=== PATIENT | female | born 1985 | race Caucasian/White ===

== ENCOUNTER → 2017-05-30 | Outpatient (CLI) | payer BC ==
[~2017-05-30] VITALS: Ht 152.4 cm; Wt 115.5 kg
[2017-05-30 16:19] VITALS: BP 135/54; PULSE 82; Ht 152.4 cm; Wt 115.5 kg
== END | disposition home or self-care (01) ==
LOC: C.NEUR 14:09
PROVIDERS: ATTEND Internal Medicine Pulmonary Disease
DX: G47.33 Obstructive sleep apnea (adult) (pediatric) (principal); F45.8 Other somatoform disorders

== ENCOUNTER → 2017-06-20 | Outpatient (CLI) | payer BC ==
--- NOTE | 2017-06-21 05:33 | PAP/PSG TECHNICIAN REPORT ---
[facility] [address] Multimedia Assistant Polysomnogram Report Study name: None Report date: 06/21/2017 Study date: 06/20/2017 Referring Physician: Dr. Maldonado Name: DEVAN BIGGS Interpreting Physician: Burton Maldonado D.O. Date of : 1985 Multimedia Assistant: Keanu Faria RPSGT. Sex: Female Age: 32 StudyType: PSG Weight: 255 lbs Height: 32 years, Height 5' 0" BMI: 49.8 Medications: SPIRONOLACTONE 50 MG, SERTRALINE HCL 50 MG, SYNTHROID 150 MCG Patient History PATIENT HAS HISTORY OF FATIGUE, SNORING, HYPOTHYROIDISM AND WITNESSED APNEAS. SHE IS HERE TODAY FOR AN EVALUATION FOR RYAN. ESS = 5 RM 5 Parameters Monitored NPSG: E1-M2, E2-M1, Fp1-M2, Fp2-M1, F3-M2, F4-M2, F4-M1, C3-M2, C4-M2, C4-M1, O1-M2, O2-M2, O2-M1, T3-M2, T4-M1, P3-M2, P4-M1, CHIN1, CHIN2, HR, EKG, Legs, PFLOW, SNOR, FLOW, CFLOW, Tidal Volume, THOR, ABDO, SpO2, PLTH, CPRESS, ETCO2 Wave, ETCO2, pH Sleep Architecture Sleep Stages Time at Lights Off 10:44:08 PM STAGES Time (min.) TST (%) Time at Lights On 5:24:08 AM Wake 56.5 -- Total Recording Time (TRT) 400.00 min. N1 18.5 5 Total Sleep Period (TSP) 370.0 min. N2 177.5 52 Total Sleep Time (TST) 343.5min. N3 94.0 27 Awake Time 56.5 min. REM 53.5 16 Wake after Sleep Onset 26.5 min. Sleep Efficiency (SE) 86 % Sleep Onset Latency (VIOLETTE) 30.0 min. Number of Stage 1 Shifts None Awakenings 14 Stage Changes 45 Number of REM periods 2 REM 53.5 16 REM Latency 254.0 min. NREM 290.0 84 Body Position Analysis Supine Right Left Side Prone Vertical Total Sleep Time (min.) 180.3 0.0 69.2 69.22 121.7 0.0 Total Sleep Time (%) 48% 0% 20% 20 32% N/A% Total Sleep Time REM (min.) 53.5 0.0 0.0 None 0.0 0.0 Total Sleep Time NREM (min.) 111.8 0.0 69.2 None 109.0 0.0 Intermittent Wake (min.) 15.0 5.9 22.9 None 12.7 0.0 Total Sleep Period (%) 48% None None None None None Arousals Myoclonus (PLM) * Events Count Index Events Count Index Spontaneous 19 3 Events Awake (PLMW) 35 37.2 Respiratory 1 0.2 Events Asleep w/ Arousal (PLMA) 4 0.7 PLM 4 1 Events Asleep w/o Arousal (PLMS) 136 23.8 Snoring 4 1 Total Asleep 140 24.5 Total 28 5 Total 175 26 Respiratory Analysis * CA OA MA CH H RERA Total Count 0 0 0 0 49 0 49 Index 0.0 0.0 0.0 0 8.6 0 8.6 Mean Duration 0.0 0.0 0.0 0.00 19.7 0.0 19.7 Longest Duration 0.0 0.0 0.0 0.00 0.0 0.0 59.0 Respiratory Event Summary Total Supine ~Supine Right Left Prone REM NREM Apneas Count 0 0 0 N/A 0 0 0 0 Index 0.0 0 0 N/A 0.0 0 0 0 Hypopneas (4% Desat) Count 49 44 5 N/A 0 5 41 8 Index 8.6 16.0 2 N/A 0.0 2.8 46.0 1.7 Apneas & All Hypopneas Count 49 44 5 N/A 0 5 41 8 Index 8.6 16 2 N/A 0 3 46.0 1.7 Respiratory Events (Development Mgr+All Hyp+RERA) Count 49 44 5 N/A 0 5 41 8 Index 8.6 16 2 N/A 0.0 2.8 46.0 1.7 Respiratory Related Arousal Count 1 44 0 N/A 0 0 0 1 Index 0.2 0 0 N/A 0 0 0 0 Snoring Analysis Supine Right Left Prone REM NREM Total Snore duration 27.8 min Snores count 128 N/A 816 396 43 1,297 1,340 Snore mean duration 1.2 Sec Snores index 46 N/A 707 218 48.2 268.3 234.1 TST with snoring (%) 8.1% Desaturation Event Summary: Minimum %SpO2 Event Count Mean/Min/Max Duration(sec.) Desaturation Index % Time In Bed > 90 48 29.1 / 4.3 / 59.3 7.7 94.4 86 - 90 18 12.0 / 5.3 / 29.0 55.9 4.9 81 - 85 1 8.8 / 8.8 / 8.8 23.5 0.6 76 - 80 0 N/A 0.0 0.0 71 - 75 0 N/A 0.0 0.0 66 - 70 0 N/A 0.0 0.0 61 - 65 0 N/A 0.0 0.0 56 - 60 0 N/A 0.0 0.0 51 - 55 0 N/A 0.0 0.0 < 50 0 N/A 0.0 0.0 Total REM NREM Awake <50% 0.0 min. 0.0 min. 0.0 min. 0.0 min. 51 - 60% 0.0 min. 0.0 min. 0.0 min. 0.0 min. 61 - 70% 0.0 min. 0.0 min. 0.0 min. 0.0 min. 71 - 80% 0.2 min. 0.2 min. 0.0 min. 0.0 min. 81 - 90% 21.9 min. 20.7 min. 0.6 min. 0.6 min. 91 - 100% 372.0 min. 32.7 min. 289.4 min. 49.9 min. Average 93 91 93 94 Minimum SpO2 79 79 87 90 Desaturation Event Index 8.9 50.5 1.9 5.3 # Desat. Events below 89% 41 40 1 N/A Time(%) with Saturation below 89% 2.7 2.7 0.0 0.0 Time(min.) with Saturation below 89% 10.8 10.7 0.1 0.0 Time (mins) REM (mins) NREM (mins) % of TST SpO2 Below 90% 46 45 N1 4.7 SpO2 Below 88% 16 0 0 2 Heart Rate Analysis Min (bpm) Max (bpm) Average (bpm) Awake 58 127 71 NREM 57 108 71 REM 55 97 77 Overall 55 108 72 Supplemental O2 Values Minimum O2 level: None Value Start Time End Time Multimedia Assistant Comments Mrs. Biggs slept in the left, supine and prone positions. No cardiac arrhythmia noted. Leg movements noted. No bruxism noted. Snoring was noted and scored as a 4 on a scale of 1 through 5. (0=no snoring, 5=snoring loud enough to be heard through a closed door or down the good way) Mrs. Biggs awoke to use the restroom 0 times during the night. Mrs. Biggs stated I slept as well as I do when I am in my own bed. The final report will be interpreted and signed by a sleep physician. The completed physician report will then be placed in the patient medical record. Therapy (cm H2O) 0 TIB (min.) 400.0 TST (min.) 343.5 Sleep Onset (min.) 30.0 REM Onset From Sleep (min.) 254.0 Sleep Efficiency % 86 Wakefulness (%) 14 Wakefulness (min.) 56.5 NREM 1 (%) 5 NREM 1 (min.) 18.5 NREM 2 (%) 52 NREM 2 (min.) 177.5 NREM 3 (%) 27 NREM 3 (min.) 94.0 REM (%) 16 REM (min.) 53.5 # Arousals 28 Arousal Index 5 # Snore 1,340 Snore Index 234.1 AHI 8.6 AHI Supine 16 AHI Non-Supine 2 NREM AHI 1.7 REM AHI 46.0 RDI 8.6 # Obstructive Apnea 0 # Central Apnea 0 # Mixed Apnea 0 # Hypopneas 49 RERAs 0 Total Respiratory Events 49 Time Below SpO2 89% (min.) 10.8 Mean NREM SpO2 (%) 93 Mean REM SpO2 (%) 91 Mean Sleep SpO2 (%) 93 Min NREM SpO2 (%) 87 Min REM SpO2 (%) 79 Position Supine (min.) 180.3 Position Non-supine (min.) 178.2 LM Index Sleep 24.5 LM Index NREM 26.1 LM Index REM 15.7 Mean Heart Rate (bpm) 72 Min Heart Rate (bpm) 55
--- NOTE | 2017-06-25 17:40 | Sleep Study ---
Sleep Study Report Date of Service: 06/20/2017 Sleep Study Report Clinical data: The patient is a 32-year-old female with a history of snoring, observed apneas, and fatigue. Her [place] score is 5. She has a history of polycystic ovarian disease. Her BMI is severely elevated at 49.8. Sleep architecture: The total sleep period was 370 minutes. The total sleep time was 343.5 minutes. The sleep efficiency was mildly reduced to 86 percent. Wake after sleep onset was 26.5 minutes. Sleep latency was prolonged to 30 minutes. The REM latency was 254 minutes. Sleep consisted of stage N1 5 percent, stage N2 52 percent, stage N3 27 percent , stage REM 16 percent. Arousal data: The patient had a total of 28 arousals including 19 spontaneous arousals, 1 respiratory arousal, 4 PLM arousal, and 4 snoring arousals. The arousal index is 5. PLM data: The patient had a total of 140 periodic limb movements of sleep for a PLM index 24.5. There were 4 arousals associated with limb movements for a PLM arousal index of 0.7. EKG: The underlying cardiac rhythm was normal sinus. The cardiac rates ranged from 55 to 108 beats per minute. The average heart rate was 72 beats per minute. No cardiac arrhythmia was noted. Respiratory data: The patient had a total of 49 respiratory events, all hypopneas. The hypopneas were scored according to the 4 percent desaturation rule. The mean duration of the hypopneas was 19.7 seconds. The apnea-hypopnea index was mildly elevated at 8.6 events per hour. This is compatible with mild obstructive sleep apnea. Oximetry data: The average saturation for the night was 93 percent. The minimum saturation was 79 percent. There was a total of 10.8 minutes with saturations less than 89 percent. Pulp Roller comments: The patient slept on the left, supine, and prone positions. No cardiac arrhythmia noted. Leg movements noted. No bruxism noted. Snoring was noted and scored as a 4 on a scale of 1 through 5. Impressions: 1. Obstructive sleep apnea-mild 2. Periodic limb movement disorder Comments: The patient had a mild decrease in sleep efficiency. Sleep architecture was overall good. She did have a delayed REM latency. She does take sertraline which can suppress REM sleep. She had relatively few arousals. There was mild sleep apnea. Most of the events occurred when the patient was supine and in REM. Most of these events occurred in the last 1/3 of the night. Her apnea- hypopnea index in the supine position was 16. The apnea-hypopnea index during REM was 46. Recommendations: 1. Consideration is given to a trial of nasal CPAP in light of the patient's symptoms. 2. Weight loss is advised in light of the severe elevation of body mass index at 49.8. 3. Clinical correlation is needed to determine if the patient is a candidate for pharmacologic therapy of the leg movements. Typically sleep apnea should be treated 1st. 4. It is suggested that she have a serum ferritin level done to be certain that iron deficiency is not in part contributing to her periodic limb movements. 5. The patient should avoid sleeping in the supine position. Typically there is more snoring and apnea while supine. Copies To 1: Burton Maldonado DO; Mauro Saleh D.O.; Daniela Patel M.D.
== END | disposition home or self-care (01) ==
LOC: C.NEUR 21:00
PROVIDERS: ATTEND Internal Medicine Pulmonary Disease
DX: G47.33 Obstructive sleep apnea (adult) (pediatric) (principal); G47.61 Periodic limb movement disorder

== ENCOUNTER → 2017-08-29 | Outpatient (CLI) | payer BC ==
[~2017-08-29] VITALS: Ht 152.4 cm; Wt 118.1 kg
[2017-08-29 15:59] VITALS: BP 128/81; PULSE 85; BMI 50.8
[2017-08-29 16:00] VITALS: BP 128/81; PULSE 85; Ht 152.4 cm; Wt 118.1 kg
== END | disposition home or self-care (01) ==
LOC: C.NEUR 14:45
PROVIDERS: ATTEND Internal Medicine Pulmonary Disease
DX: G47.33 Obstructive sleep apnea (adult) (pediatric) (principal); F45.8 Other somatoform disorders